=== PATIENT | female | born 1955 | race Caucasian/White ===

== ENCOUNTER 2021-12-15 17:52 | Emergency (ER) | payer MEDICARE, OTHER ==
[~2021-12-15 17:52] MED LIST: HYDROCODON-ACE1 EAC4 PO
== END 2021-12-15 21:02 | disposition home or self-care (01) ==
LOC: FER 17:52
DX: S22.32XA Fracture of one rib, left side, initial encounter for closed fracture (principal); I10 Essential (primary) hypertension; E11.9 Type 2 diabetes mellitus without complications; Z88.0 Allergy status to penicillin; Z88.2 Allergy status to sulfonamides; Z91.041 Radiographic dye allergy status; W19.XXXA Unspecified fall, initial encounter; Y92.009 Unspecified place in unspecified non-institutional (private) residence as the place of occurrence of the external cause
CPT/HCPCS: 71101; 94010; J1170